=== PATIENT | male | born 1935 | race Caucasian/White ===

== ENCOUNTER 2018-10-02 15:38 | Emergency (ER) | payer MEDICARE ==
[~2018-10-02] VITALS: Ht 180.3 cm; Wt 94.8 kg
--- OUTSIDE RECORDS SUMMARY | 2018-10-02 15:42 | XMS REPORT ---
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 Allergies, Adverse Reactions, Alerts This patient has no known allergies or adverse reactions. Medications This patient has no known medications. Results Test Description Test Time Test Comments Text Results Atomic Results Result Comments CT BRAIN WO [place] [id number] [place] [address] Patient Name: HENOK PIEDRA MR #: [id number] : 1935 Age/Sex: 82/M Req #: [id number] Adm Physician: Ordered by: COLT DOOLEY MERCHANDISE STOCKER Report #: [id number] Location: ER Room/Bed: Procedure: [id number] CT/CT BRAIN WO Exam Date: 09/04/17 Exam Time: 1450 REPORT STATUS: Signed History:Fall and hit posterior head today Comparison studies:None Technique: Axial images were obtained from the skull base to the vertex. Coronal and sagittal images reconstructed from the axial data. Intravenous contrast: None Findings: Scalp/skull: No abnormalities. Extra- axial spaces: No masses. No fluid collections. Brain sulci: Mildly prominent. Moderately prominent sylvian fissures temporal horn Ventricles: Mild compensatory dilatation. No hydrocephalus. Parenchyma: Scattered small hypodensities in the supratentorial white matter are small vessel ischemic changes. No masses, hemorrhage, acute or chronic cortical vascular insults. Sellar/suprasellar region: No abnormalities. Craniocervical junction: Patent foramen magnum. No Chiari one malformation. Incidental findings: Atherosclerotic calcifications in the carotid siphons and vertebral arteries . Sclerosis and under pneumatization of the bilateral mastoid air cells, secondary to chronic inflammation. Impression: No acute intracranial abnormalities. Left parietal scalp hematoma without underlying fracture Chronic findings: 1. Mild generalized volume loss. Moderate volume loss at the temporal lobes, which can be seen in some dementias (AD). 2. Mild supratentorial white matter small vessel ischemic changes. Signed by: DR Antonio Artis M.D. on 09/04/2017 3:40 PM Dictated By: ANTONIO SINGH MD 39 Transcribed By: BRAYAN on 09/04/171539 COPY TO: COLT DOOLEY MERCHANDISE STOCKER CT CERVICAL SPINE WO [place] [address] Patient Name: HENOK PIEDRA MR #: [id number] : 1935 Age/Sex: 82/M Req #: [id number] Adm Physician: Ordered by: COLT DOOLEY MERCHANDISE STOCKER Report #: [id number] Location: ER Room/Bed: Procedure: [id number] CT/CT CERVICAL SPINE WO Exam Date: 09/04/17 Exam Time: 1450 REPORT STATUS: Signed History: Fall, hit posterior head Comparison studies: None Technique: Axial images were obtained through the cervical region. Coronal and sagittal images reconstructed from the axial data. Intravenous contrast: None Findings: Atlantoaxial articulation: Moderate degenerative changes with decreased predental space, sclerosis and marginal osteophytes Alignment: Normal lordosis No scoliosis. Cervicomedullary junction: No abnormalities. Patent foramen magnum. Soft tissues: No gross abnormalities. Calcification of the ligamentum nuclei. Vertebrae: No fractures, neoplasm or infection. Degenerative changes: Moderate to severe facet hypertrophy from C2 through C5 on the left side and left uncinate process hypertrophy results in moderate multilevel left foraminal narrowing. Atherosclerotic calcifications of the carotid siphons. Sclerosis pneumatization of the bilateral mastoid air cells.. IMPRESSION: 1. No acute cervical abnormality. Degenerative changes as described above. 2. Cannot exclude ligament, spinal cord and or vascular abnormalities on the basis of this examination. Signed by: DR Antonio Artis M.D. on 09/04/2017 3:44 PM Dictated By: ANTONIO SINGH MD [id number] Transcribed By: BRAYAN on 09/04/17 1544 COPY TO: COLT DOOLEY NP
--- NOTE | 2018-10-02 17:32 | Diagnostic Imaging Report ---
History:Fall Comparison studies: Head CT on 09/04/2017 Technique: Axial images were obtained from the skull base to the vertex. Coronal and sagittal images reconstructed from the axial data. Dose modulation, iterative reconstruction, and/or weight based adjustment of the mA/kV was utilized to reduce the radiation dose to as low as reasonably achievable. Intravenous contrast: None Findings: Scalp/skull: No abnormalities. Extra-axial spaces: No masses. No fluid collections. Brain sulci: Moderately prominent. Ventricles: Moderate compensatory dilatation. No hydrocephalus. Parenchyma: Ill-defined, confluent hypodensities in the supratentorial white matter are small vessel ischemic changes. No masses, hemorrhage, acute or chronic cortical vascular insults. Sellar/suprasellar region: No abnormalities. Craniocervical junction: Patent foramen magnum. No Chiari one malformation. Incidental findings: Atherosclerotic calcifications in the carotid siphons Impression: 1. No acute abnormalities. 2. No changes when compared to the previous head CT on 09/04/2017. Chronic findings: Moderate generalized volume loss , disproportionately more focal in the anterior temporal lobe Moderate supratentorial white matter small vessel ischemic changes. Signed by: Dr. Cipriano Wood M.D. on 10/02/2018 5:29 PM
--- NOTE | 2018-10-02 17:36 | Diagnostic Imaging Report ---
History: Fall Comparison studies: None Technique: Axial images were obtained through the cervical region.. Coronal and sagittal images reconstructed from the axial data. Dose modulation, iterative reconstruction, and/or weight based adjustment of the mA/kV was utilized to reduce the radiation dose to as low as reasonably achievable. Intravenous contrast: None Findings: Fractures: None. Soft tissues: No gross abnormalities. Atlantoaxial articulation: Intact. Alignment: Normal lordosis. No scoliosis. Cervicomedullary junction: No abnormalities. The foramen magnum is patent. Vertebrae: No infection or neoplasm. Degenerative changes: Mildly degenerated disks with prominent confluent anterior osteophytes from C3 to C7. 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 Foraminal stenosis is moderate bilaterally at C2-3, on the left at C3-4 on the left at C5-6 due to facet and uncovertebral arthrosis. Focal left spinal canal stenosis at C5-6 due to a disc osteophyte complex. Incidental findings: Coarse calcifications at the carotid bulbs Nonspecific chronic inflammatory changes in the middle ear and mastoids. IMPRESSION: 1. No acute abnormalities. 2. Cannot adequately evaluate for ligament, spinal cord and or vascular abnormalities. 3. No changes when compared to the cervical spine CT on 09/04/2017. 4. Unchanged degenerative spinal canal and foraminal stenosis as described. Signed by: Dr. Cipriano Wood M.D. on 10/02/2018 5:33 PM
== END 2018-10-02 19:49 | disposition home or self-care (01) ==
LOC: ER 15:38
DX: S00.01XA Abrasion of scalp, initial encounter (principal); W18.39XA Other fall on same level, initial encounter; Y92.488 Other paved roadways as the place of occurrence of the external cause; I10 Essential (primary) hypertension; E78.5 Hyperlipidemia, unspecified
CPT/HCPCS: 70450; 72125; 99283